=== PATIENT | female | born 1960 | race Caucasian/White ===

== ENCOUNTER 2023-04-07 22:40 | Emergency (ER) | payer SELFPAY ==
[~2023-04-07] VITALS: Ht 170.2 cm; Wt 79.4 kg
[2023-04-07 22:45] VITALS: O2SAT 99
[2023-04-07] MEDS ORDERED: CEPHALEXIN MONOHYDRATE 250 MG CAP ONE (22:53)
[2023-04-07] MEDS ORDERED: KEFLEX125 MG/5 M PO (22:54)
[2023-04-07] MEDS ORDERED: CEPHALEXIN500 MG PO (22:59)
[2023-04-07] MEDS ORDERED: CEPHALEXIN MONOHYDRATE 250 MG CAP PO ONE (23:00)
== END 2023-04-07 23:45 | disposition home or self-care (01) ==
LOC: FSED 22:44
DX: R30.0 Dysuria (principal); N39.0 Urinary tract infection, site not specified; R35.0 Frequency of micturition
CPT/HCPCS: 81003; 87086; 87186; 99282

== ENCOUNTER 2023-04-21 20:33 | Emergency (ER) | payer OTHER ==
[~2023-04-21] VITALS: Ht 170.2 cm; Wt 79.4 kg
[~2023-04-21 20:33] MED LIST: CEPHALEXIN500 MG PO; KEFLEX125 MG/5 M PO
[2023-04-21 21:13] VITALS: O2SAT 97
[2023-04-21] MEDS ORDERED: CEFDINIR300 MG PO (22:18)
== END 2023-04-21 22:44 | disposition home or self-care (01) ==
LOC: FSED 20:37
DX: R30.0 Dysuria (principal); N30.90 Cystitis, unspecified without hematuria; N34.2 Other urethritis
CPT/HCPCS: 81003; 87086; 87186; 99282